=== PATIENT | female | born 1950 | race African-American/Black ===

== ENCOUNTER 2017-11-29 09:10 | Emergency (ER) | payer MEDICARE ==
[2017-11-29 09:46] LABS: URINE BLOOD (Dip) POC Negative (NEGATIVE); URINE GLUCOSE (Dip) POC Negative (NEGATIVE); URINE KETONES (Dip) POC Negative (NEGATIVE); URINE LEUKOCYTE EST (Dip) POC Negative (NEGATIVE); URINE NITRITE (Dip) POC Negative (NEGATIVE); URINE TOTAL PROTEIN POC Negative (NEGATIVE)
== END 2017-11-29 10:46 | disposition home or self-care (01) ==
LOC: FTE 09:10
DX: R06.02 Shortness of breath (principal); I10 Essential (primary) hypertension
CPT/HCPCS: 71045; 81003; 82962; 99284-25

== ENCOUNTER 2018-02-12 21:39 | Observation (INO) | payer MEDICARE ==
[2018-02-12 22:39] LABS: ADD MAN DIFF? NO
[2018-02-12 22:41] LABS: BASOPHILS % 0.5 % (0.0-2.0); EOSINOPHILS # 0.1 10^3/ul (0.0-0.5); EOSINOPHILS % 2.3 % (0.0-7.0); HEMATOCRIT 33.4 % (37.0-47.0); HEMOGLOBIN 10.4 g/dl (12.0-16.0); LYMPHOCYTES # 1.6 10^3/ul (0.8-2.9); LYMPHOCYTES % 26.9 % (15.0-51.0); MEAN CORPUSCULAR HEMOGLOBIN 28.7 pg (29.0-33.0); MEAN CORPUSCULAR HGB CONC 31.1 g/dl (32.0-37.0); MEAN CORPUSCULAR VOLUME 92.3 fl (82.0-101.0); MEAN PLATELET VOLUME 9.3 fl (7.4-10.4); MONOCYTE # 0.5 10^3/ul (0.3-0.9); NEUTROPHIL # 3.7 10^3/ul (1.6-7.5); NEUTROPHILS % 61.1 % (39.0-77.0); PLATELET COUNT 237 10^3/UL (140-415); RED BLOOD COUNT 3.62 10^6/ul (4.20-5.40); RED CELL DISTRIBUTION WIDTH 15.1 % (11.5-14.5)
[2018-02-12 23:00] LABS: ALANINE AMINOTRANSFERASE 16 IU/L (13-69); ALBUMIN 4.1 g/dl (3.3-4.9); ALBUMIN/GLOBULIN RATIO 1.02; ALKALINE PHOSPHATASE 73 IU/L (42-121); ANION GAP 10 (5-13); ASPARTATE AMINO TRANSFERASE 30 IU/L (15-46); BILIRUBIN,INDIRECT 0.1 mg/dl (0-1.1); BILIRUBIN,TOTAL 0.1 mg/dl (0.2-1.3); BLOOD UREA NITROGEN 24 mg/dl (7-20); CALCIUM 10.1 mg/dl (8.4-10.2); CARBON DIOXIDE 23 mmol/L (21-31); CHLORIDE 109 mmol/L (97-110); CREATININE 0.83 mg/dl (0.44-1.00); Estimated GFR > 60 mL/min (>60); GLUCOSE 99 mg/dl (70-220); POTASSIUM 4.2 mmol/L (3.5-5.1); SODIUM 142 mmol/L (135-144); TOTAL PROTEIN 8.1 g/dl (6.1-8.1)
[2018-02-12 23:10] LABS: B-TYPE NATRIURETIC PEPTIDE 73 PG/ML (0-125); TROPONIN-I < 0.012 ng/ml (0.000-0.120)
[2018-02-13 05:45] LABS: CREATINE KINASE 207 IU/L (23-200)
[2018-02-13 05:58] LABS: CK INDEX 0.5; CK-MB 1.09 ng/ml (0.0-2.4); TROPONIN-I < 0.012 ng/ml (0.000-0.120)
[2018-02-13] MEDS ORDERED: ALBUTEROL/IPRATROPIUM (NEB) 3 ML AMP HHN (06:30)
[2018-02-13] MEDS ORDERED: NITROGLYCERIN (SL) 0.4 MG TAB SL (06:30)
[2018-02-13] MEDS ORDERED: NACL 0.9% 3 ML SYG IV (06:30)
[2018-02-13] MEDS ORDERED: ACETAMINOPHEN 650 MG SUPP PR (06:30)
[2018-02-13] MEDS: PANTOPRAZOLE (EC) 40 MG TAB PO ×2 (07:24→18:00)
[2018-02-13] MEDS: LEVOTHYROXINE 100 MCG TAB PO (07:24)
[2018-02-13] MEDS: ARIPIPRAZOLE 2 MG TAB PO (08:14)
[2018-02-13] MEDS: AMLODIPINE 10 MG TAB PO (08:15)
[2018-02-13] MEDS: POTASSIUM CHLORIDE (SR) 10 MEQ TAB PO (08:15)
[2018-02-13] MEDS: hydrOXYzine PAMOATE 25 MG CAP PO ×4 (08:15→23:48)
[2018-02-13] MEDS: FLUOXETINE 20 MG CAP PO (08:16)
[2018-02-13] MEDS: FUROSEMIDE 20 MG INJ IV (08:16)
[2018-02-13] MEDS: MELOXICAM 7.5 MG TAB PO ×2 (08:16→20:31)
[2018-02-13] MEDS ORDERED: BUSPIRONE 5 MG TAB PO (09:00)
[2018-02-13] MEDS: ONDANSETRON 4 MG INJ IV (10:04)
[2018-02-13] MEDS: BUSPIRONE 10 MG TAB PO ×2 (10:04→20:31)
[2018-02-13 11:41] LABS: CREATINE KINASE 214 IU/L (23-200)
[2018-02-13 11:54] LABS: CK INDEX 0.6; CK-MB 1.19 ng/ml (0.0-2.4); TROPONIN-I < 0.012 ng/ml (0.000-0.120)
[2018-02-13] MEDS: OXYCODONE/ACETAMINOPHEN (10/325) TAB PO (13:20)
[2018-02-13] MEDS: DOCUSATE SODIUM 100 MG CAP PO (13:20)
[2018-02-13] MEDS: AMITRIPTYLINE 50 MG TAB PO (20:31)
[2018-02-13] MEDS: SENNA/DOCUSATE NA (8.6MG/50MG) TAB PO (20:32)
[2018-02-14 05:36] LABS: ADD MAN DIFF? NO
[2018-02-14 05:39] LABS: BASOPHILS % 0.4 % (0.0-2.0); EOSINOPHILS # 0.2 10^3/ul (0.0-0.5); EOSINOPHILS % 3.1 % (0.0-7.0); HEMATOCRIT 31.9 % (37.0-47.0); HEMOGLOBIN 9.9 g/dl (12.0-16.0); LYMPHOCYTES # 1.5 10^3/ul (0.8-2.9); LYMPHOCYTES % 30.8 % (15.0-51.0); MEAN CORPUSCULAR HEMOGLOBIN 28.5 pg (29.0-33.0); MEAN CORPUSCULAR VOLUME 91.9 fl (82.0-101.0); MEAN PLATELET VOLUME 9.1 fl (7.4-10.4); MONOCYTE # 0.5 10^3/ul (0.3-0.9); MONOCYTES % 10.5 % (0.0-11.0); NEUTROPHIL # 2.7 10^3/ul (1.6-7.5); PLATELET COUNT 236 10^3/UL (140-415); RED BLOOD COUNT 3.47 10^6/ul (4.20-5.40); RED CELL DISTRIBUTION WIDTH 15.1 % (11.5-14.5)
[2018-02-14 05:39] LABS: WHITE BLOOD COUNT 4.8 10^3/ul (4.8-10.8)
[2018-02-14 05:55] LABS: HEMOGLOBIN A1C 6.1 % (0-5.9)
[2018-02-14] MEDS: PANTOPRAZOLE (EC) 40 MG TAB PO ×2 (06:05→17:15)
[2018-02-14] MEDS: hydrOXYzine PAMOATE 25 MG CAP PO ×3 (06:05→17:15)
[2018-02-14] MEDS: LEVOTHYROXINE 100 MCG TAB PO (06:06)
[2018-02-14 06:14] LABS: ALANINE AMINOTRANSFERASE 18 IU/L (13-69); ALKALINE PHOSPHATASE 69 IU/L (42-121); ANION GAP 8 (5-13); ASPARTATE AMINO TRANSFERASE 24 IU/L (15-46); BLOOD UREA NITROGEN 31 mg/dl (7-20); CALCIUM 9.3 mg/dl (8.4-10.2); CARBON DIOXIDE 28 mmol/L (21-31); CHLORIDE 107 mmol/L (97-110); CHOL/HDL RATIO 2.5 RATIO; CHOLESTEROL 205 mg/dl (100-200); Estimated GFR > 60 mL/min (>60); GLUCOSE 125 mg/dl (70-220); HDL CHOLESTEROL 79 mg/dl (35-98); LDL CHOLESTEROL,CALCULATED 95 mg/dl; MAGNESIUM 1.7 mg/dl (1.7-2.5); POTASSIUM 3.8 mmol/L (3.5-5.1); SODIUM 143 mmol/L (135-144); TOTAL PROTEIN 6.3 g/dl (6.1-8.1); TRIGLYCERIDES 153 mg/dl (0-149)
[2018-02-14 06:14] LABS: PHOSPHORUS 4.1 mg/dl (2.5-4.9)
[2018-02-14] MEDS: OXYCODONE/ACETAMINOPHEN (10/325) TAB PO ×2 (08:11→20:28)
[2018-02-14] MEDS: FUROSEMIDE 20 MG INJ IV (08:12)
[2018-02-14] MEDS: ARIPIPRAZOLE 2 MG TAB PO (09:50)
[2018-02-14] MEDS: POTASSIUM CHLORIDE (SR) 10 MEQ TAB PO (09:51)
[2018-02-14] MEDS: BUSPIRONE 10 MG TAB PO (09:51)
[2018-02-14] MEDS: MELOXICAM 7.5 MG TAB PO (09:51)
[2018-02-14] MEDS: FLUOXETINE 20 MG CAP PO (09:51)
[2018-02-14] MEDS: LISINOPRIL 5 MG TAB PO (09:52)
[2018-02-14] MEDS: ENOXAPARIN 40 MG/0.4 ML SYG SC (10:00)
[2018-02-14] MEDS: MAGNESIUM OXIDE 400 MG TAB PO (11:12)
[2018-02-14] MEDS: POTASSIUM CHLORIDE 20 MEQ POWDER FOR ORAL SOLN PO (11:12)
[2018-02-14] MEDS ORDERED: METOPROLOL (XL) 25 MG TAB PO (21:00)
== END 2018-02-14 20:34 | disposition home or self-care (01) ==
LOC: E/R 21:39 → 6WM 02-13 05:18
DX: R06.00 Dyspnea, unspecified (principal); R60.9 Edema, unspecified; I10 Essential (primary) hypertension; E03.9 Hypothyroidism, unspecified; F32.9 Major depressive disorder, single episode, unspecified; D64.9 Anemia, unspecified; Z85.3 Personal history of malignant neoplasm of breast
CPT/HCPCS: 36415; 71045; 80053; 80061; 82550; 82553; 83036; 83735; 83880; 84100; 84443; 84484; 85025; 93005; 93306; 93970; 99285-25; G0378

== ENCOUNTER 2018-03-07 12:24 | Emergency (ER) | payer MEDICARE ==
[2018-03-07 13:14] LABS: ADD MAN DIFF? NO
[2018-03-07 13:22] LABS: BASOPHILS % 0.6 % (0.0-2.0); EOSINOPHILS # 0.1 10^3/ul (0.0-0.5); EOSINOPHILS % 2.6 % (0.0-7.0); HEMATOCRIT 32.5 % (37.0-47.0); HEMOGLOBIN 10.1 g/dl (12.0-16.0); LYMPHOCYTES # 1.6 10^3/ul (0.8-2.9); LYMPHOCYTES % 28.9 % (15.0-51.0); MEAN CORPUSCULAR HEMOGLOBIN 28.3 pg (29.0-33.0); MEAN CORPUSCULAR HGB CONC 31.1 g/dl (32.0-37.0); MEAN PLATELET VOLUME 9.5 fl (7.4-10.4); MONOCYTE # 0.6 10^3/ul (0.3-0.9); MONOCYTES % 10.4 % (0.0-11.0); NEUTROPHIL # 3.1 10^3/ul (1.6-7.5); NEUTROPHILS % 57.3 % (39.0-77.0); PLATELET COUNT 216 10^3/UL (140-415); RED BLOOD COUNT 3.57 10^6/ul (4.20-5.40); RED CELL DISTRIBUTION WIDTH 15.1 % (11.5-14.5)
[2018-03-07 13:22] LABS: WHITE BLOOD COUNT 5.4 10^3/ul (4.8-10.8)
[2018-03-07 13:29] LABS: ALANINE AMINOTRANSFERASE 30 IU/L (13-69); ALBUMIN 4.1 g/dl (3.3-4.9); ALKALINE PHOSPHATASE 77 IU/L (42-121); ANION GAP 4 (5-13); ASPARTATE AMINO TRANSFERASE 37 IU/L (15-46); BILIRUBIN,INDIRECT 0.2 mg/dl (0-1.1); BILIRUBIN,TOTAL 0.2 mg/dl (0.2-1.3); BLOOD UREA NITROGEN 13 mg/dl (7-20); CALCIUM 9.3 mg/dl (8.4-10.2); CARBON DIOXIDE 27 mmol/L (21-31); CHLORIDE 109 mmol/L (97-110); CREATININE 0.82 mg/dl (0.44-1.00); Estimated GFR > 60 mL/min (>60); GLUCOSE 95 mg/dl (70-220); LIPASE 31 U/L (23-300); POTASSIUM 4.5 mmol/L (3.5-5.1); SODIUM 140 mmol/L (135-144); TOTAL PROTEIN 7.8 g/dl (6.1-8.1)
[2018-03-07 13:42] LABS: B-TYPE NATRIURETIC PEPTIDE 346 PG/ML (0-125); TROPONIN-I < 0.012 ng/ml (0.000-0.120)
[2018-03-07] MEDS: HYDROCODONE/APAP (5/325) TAB PO (13:44)
[2018-03-07] MEDS: FUROSEMIDE 40 MG INJ IV (13:44)
== END 2018-03-07 14:30 | disposition home or self-care (01) ==
LOC: E/R 12:24
DX: M17.12 Unilateral primary osteoarthritis, left knee (principal); I10 Essential (primary) hypertension; R60.9 Edema, unspecified
CPT/HCPCS: 36415; 71045; 80053; 83690; 83880; 84484; 85025; 93005; 96374; 99285-25